=== PATIENT | female | born 1940 ===

== ENCOUNTER 2017-11-25 19:32 | Emergency (ER) | payer BC ==
[2017-11-25 20:10] VITALS: BP 151/68; PULSE 73; RESP 18; TEMP 98.2; O2SAT 100
[2017-11-25] MEDS ORDERED: Sodium Chloride 0.9% 250 ML IV ONE (20:44)
--- NOTE | 2017-11-25 20:45 | ED PDOC ---
HPI:Nausea, Vomiting, Diarrhea <Keyon Duque - Last Filed: 11/25/17 22:19> Chief Complaint (Provider): Nausea/poor appetite History Per: Patient History/Exam Limitations: no limitations Onset/Duration Of Symptoms: Days Current Symptoms Are (Timing): Still Present Associated Symptoms: Nausea. denies: Fever, Chills, Vomiting, Diarrhea, Back Pain, Chest Pain, Constipation, Urinary Symptoms Additional Complaint(s): 77 y/o F with h/o HTN, HLD, Arthritis presents to ED complaining of poor appetite, and nausea for 2 weeks. States that she started with poor appetite since 2 weeks ago, and then started having nausea without vomiting, and decided to come to Ed for eval because her poor appetite is persistent, and her nausea is getting worse. Denies fevers, chills, CP, SOB, abdominal pain, diarrheas, urinary symptoms, or other complains. Saw her Cigar Making Supervisor on Monday, who did some cardiac test in his office, and because abnormal findings she will get another test " poss stress test next week". Last BM was today morning and normal. PMD: Dr. Simon Cardiology: Dr. Hilliard <Desirae Velarde - Last Filed: 11/25/17 22:53> Time Seen by Provider: 11/25/17 20:09 Chief Complaint (Nursing): GI Problem Supervising Attending Note - Supervising Attending Note The Documented history was done by the: Physician Candy Wrapping Machine Operator, Attending Physician The documented physical exam was done by the: Physician Candy Wrapping Machine Operator, Attending Physician The documented procedures were done by the: Physician Candy Wrapping Machine Operator, Attending Physician - Attestation: I have personally seen and examined this patient.: Yes I have fully participated in the care of the patient.: Yes I have reviewed all pertinent clinical information, including history, physical exam and plan: Yes <Keyon Duque - Last Filed: 11/25/17 22:19> Past Medical History Vital Signs: Last Vital Signs Temp 98.2 F 11/25/17 20:08 Pulse 73 11/25/17 20:08 Resp 18 11/25/17 20:08 BP 151/68 H 11/25/17 20:08 Pulse Ox 100 11/25/17 21:16 <Keyon Duque - Last Filed: 11/25/17 22:19> Vital Signs: Last Vital Signs Temp 98.2 F 11/25/17 20:08 Pulse 73 11/25/17 20:08 Resp 18 11/25/17 20:08 BP 151/68 H 11/25/17 20:08 Pulse Ox 100 11/25/17 20:08 - Medical History PMH: Asthma, HTN - Family History Family History: States: Unknown Family Hx <Desirae Velarde - Last Filed: 11/25/17 22:53> - Home Medications Home Medications: Ambulatory Orders Medication Instructions Recorded Nitrofurantoin Macrocrystals 100 mg PO BID #14 cap 11/25/17 [Macrobid] Ondansetron ODT [Zofran ODT] 4 mg PO Q8 PRN #5 odt 11/25/17 - Allergies Allergies/Adverse Reactions: Allergies Allergy/AdvReac Type Severity Reaction Status Date / Time Penicillins Allergy RASH Verified 11/25/17 20:08 Review of Systems ROS Statement: Except As Marked, All Systems Reviewed And Found Negative <Desirae Velarde - Last Filed: 11/25/17 22:53> Physical Exam - Reviewed Nursing Documentation Reviewed: Yes Vital Signs Reviewed: Yes - Physical Exam Appears: Positive for: Non-toxic, No Acute Distress Head Exam: Positive for: ATRAUMATIC, NORMOCEPHALIC Skin: Positive for: Warm, Dry. Negative for: Diaphoresis, Pallor, Rash, Jaundice Eye Exam: Positive for: Normal appearance ENT: Positive for: Normal ENT Inspection Neck: Positive for: Supple Cardiovascular/Chest: Positive for: Regular Rate, Rhythm, Edema (pitting 1+ in Lower extremities). Negative for: Chest Non Tender, Bradycardia, Tachycardia Respiratory: Positive for: Normal Breath Sounds. Negative for: Crackles, Rales , Rhonchi, Wheezing, Respiratory Distress Gastrointestinal/Abdominal: Positive for: Soft. Negative for: Tenderness, Distended, Guarding, Rebound Back: Positive for: Normal Inspection. Negative for: L CVA Tenderness, R CVA Tenderness Neurologic/Psych: Positive for: Alert, Oriented <Desirae Velarde - Last Filed: 11/25/17 22:53> - Laboratory Results Result Diagrams: 11/25/17 20:49 11/25/17 21:19 <Keyon Duque Last Filed: 11/25/17 22:19> - Laboratory Results Result Diagrams: 11/25/17 20:49 11/25/17 21:19 - ECG O2 Sat by Pulse Oximetry: 100 <Desirae Velarde - Last Filed: 11/25/17 22:53> Medical Decision Making Medical Decision Making: Poor Appetite/Nausea CBC, CMP urine dip, UA EKG NS 250 ml bolus once case discussed with Dr. Duque Labs : CBC WNL CMP remarkable for mild elevated BUN/Cr possible 2/2 dehydration in a setting of poor PO intake, and taking diuretics UA positive for WBC , and large leukocyte esterase will send for urine Cx start Macrobid empiric treatment Zofran 4 mg PO PRN for nausea decreased furosemide from 40 mg to 20 mg PO as directed f/u with PMD and Cardiology in 2-3 days is recommended ER precautions given case discussed with Dr. Duque <Desirae Velrade - Last Filed: 11/25/17 22:53> Disposition <Keyon Duque - Last Filed: 11/25/17 22:19> - Patient ED Disposition Is Patient to be Admitted: No Discussed With : Keyon Duque - Disposition Disposition: Routine/Home Disposition Time: 22:41 <Desirae Velarde - Last Filed: 11/25/17 22:53> - Clinical Impression Clinical Impression: Nausea - Disposition Condition: IMPROVED Additional Instructions: Bishop a emery medico primario en 2-3 hernandez, tambien se recomienda seguir con Cardiologo en 2-3 days. Disminuir dosis de Furosemide a 20 mg hasta que katharina a emery Cardiologo. Ernesto Macrobid dos veces al ciara for infeccion urinaria stanislav indicado Regresar a emergency si fiebre jemal, escalofrios, dolor en el pecho, falta de aire o otro simtoma que le preocupe Prescriptions: Nitrofurantoin Macrocrystals [Macrobid] 100 mg PO BID #14 cap Ondansetron ODT [Zofran ODT] 4 mg PO Q8 PRN #5 odt PRN Reason: Nausea/Vomiting Instructions: Nausea and Vomiting, Adult (DC) Print Language: GREENLANDIC
[2017-11-25 20:53] LABS: EOS # 0.1 K/uL (0.0-0.7); EOS % 1.5 % (0.0-4.0); HEMOGLOBIN 13.2 g/dL (12.0-16.0); LYMPH # 1.3 K/uL (1.0-4.3); MEAN CELL VOLUME 90.3 fl (81.0-99.0); MEAN CORPUSCULAR HEMOGLOBIN 30.1 pg (27.0-31.0); MEAN CORPUSCULAR HGB CONC 33.4 g/dL (33.0-37.0); MEAN PLATELET VOLUME 7.8 fl (7.2-11.7); MONO # 0.5 K/uL (0.0-0.8); MONO % 11.3 % (0.0-10.0); NEUT # 2.5 K/uL (1.8-7.0); NEUT % 57.2 % (50.0-75.0); RBC 4.37 Mil/uL (3.80-5.20); RED CELL DISTRIBUTION WIDTH 13.5 % (11.5-14.5); WHITE BLOOD COUNT 4.4 K/uL (4.8-10.8)
[2017-11-25 21:27] LABS: SQUAMOUS EPITHIAL < 1 /hpf (0-5); URINE BILIRUBIN NEGATIVE (NEGATIVE); URINE BLOOD NEGATIVE (NEGATIVE); URINE CLARITY SLIGHTY-CLOUDY (Clear); URINE COLOR YELLOW (YELLOW); URINE GLUCOSE (UA) NEG (Normal); URINE LEUKOCYTE ESTERASE LARGE Leu/uL (Negative); URINE PROTEIN NEGATIVE (NEGATIVE); URINE UROBILINOGEN 0.2-1.0 mg/dL (0.2-1.0)
[2017-11-25 21:31] LABS: ALB/GLOB RATIO 1.2 (1.0-2.1); ALBUMIN 4.1 g/dL (3.5-5.0); CALCIUM 9.3 mg/dL (8.4-10.2)
--- NOTE | 2017-11-27 17:54 | CARD ---
APPROVED REPORT Date of service: 11/25/2017 EKG Measurement Heart [id number] <Conclusion> Normal sinus rhythm Left bundle branch block Abnormal ECG
== END 2017-11-25 23:10 | disposition home or self-care (01) ==
LOC: H.ER 19:32
DX: R11.0 Nausea (principal); I10 Essential (primary) hypertension; J45.909 Unspecified asthma, uncomplicated; Z88.0 Allergy status to penicillin
CPT/HCPCS: 80053; 81003; 85025; 87086; 93005; 96361; 96374; 99283; J2405; J7040

== ENCOUNTER 2017-11-29 12:07 | Emergency (ER) | payer BC ==
[2017-11-29 12:20] VITALS: BP 158/57; RESP 20; TEMP 98.2; O2SAT 99
[2017-11-29 13:09] LABS: BASO # 0.1 K/uL (0.0-0.2); BASO % 1.1 % (0.0-2.0); EOS # 0.1 K/uL (0.0-0.7); EOS % 1.6 % (0.0-4.0); HEMOGLOBIN 12.6 g/dL (12.0-16.0); LYMPH # 1.4 K/uL (1.0-4.3); LYMPH % 30.7 % (20.0-40.0); MEAN CELL VOLUME 91.8 fl (81.0-99.0); MEAN CORPUSCULAR HEMOGLOBIN 30.1 pg (27.0-31.0); MEAN CORPUSCULAR HGB CONC 32.8 g/dL (33.0-37.0); MEAN PLATELET VOLUME 7.7 fl (7.2-11.7); MONO # 0.4 K/uL (0.0-0.8); MONO % 9.3 % (0.0-10.0); NEUT # 2.7 K/uL (1.8-7.0); NEUT % 57.3 % (50.0-75.0); NRBC % 0.1 % (0.0-0.0); RBC 4.17 Mil/uL (3.80-5.20); RED CELL DISTRIBUTION WIDTH 13.9 % (11.5-14.5); WHITE BLOOD COUNT 4.6 K/uL (4.8-10.8)
[2017-11-29] MEDS ORDERED: Iohexol 240 (50 ml) ONE (13:10)
[2017-11-29 13:13] LABS: SQUAMOUS EPITHIAL < 1 /hpf (0-5); URINE BILIRUBIN NEGATIVE (NEGATIVE); URINE BLOOD NEGATIVE (NEGATIVE); URINE CLARITY CLEAR (Clear); URINE COLOR AMBER (YELLOW); URINE GLUCOSE (UA) NEG (Normal); URINE LEUKOCYTE ESTERASE NEG Leu/uL (Negative); URINE PROTEIN NEGATIVE (NEGATIVE); URINE UROBILINOGEN 0.2-1.0 mg/dL (0.2-1.0)
[2017-11-29] MEDS: Iohexol 240 (50 ml) PO ONE (13:13)
[2017-11-29 13:21] VITALS: PULSE 65
--- NOTE | 2017-11-29 13:21 | ED PDOC ---
HPI:Nausea, Vomiting, Diarrhea Time Seen by Provider: 11/29/17 12:33 Chief Complaint (Nursing): GI Problem Chief Complaint (Provider): Nausea History Per: Patient History/Exam Limitations: no limitations Onset/Duration Of Symptoms: Days Current Symptoms Are (Timing): Still Present Associated Symptoms: Nausea. denies: Fever, Vomiting, Diarrhea, Chest Pain, Urinary Symptoms Additional Complaint(s): 77 year old female presents to the ED complaining of nausea onset for one week. States her nausea originally resolved after taking the prescribed Zofran and Macrobid. She felt better, however, her symptoms returned prompting her to come to the ED. Also reports she stopped taking some of her medications due to the nausea. Denies vomiting, diarrhea, fever, abdominal pain, chest pain, dizziness , headache or any urinary symptoms. PMD: Manuela Simon Past Medical History Reviewed: Historical Data, Nursing Documentation, Vital Signs Vital Signs: Last Vital Signs Temp 98.2 F 11/29/17 12:16 Pulse 75 11/29/17 12:16 Resp 20 11/29/17 12:16 BP 158/57 H 11/29/17 12:16 Pulse Ox 99 11/29/17 12:16 - Medical History PMH: Arthritis, Asthma, HTN - Surgical History Surgical History: No Surg Hx - Family History Family History: States: Unknown Family Hx - Social History Current smoker - smoking cessation education provided: No Alcohol: None Drugs: Denies - Home Medications Home Medications: Ambulatory Orders Medication Instructions Recorded Nitrofurantoin Macrocrystals 100 mg PO BID #14 cap 11/25/17 [Macrobid] Ondansetron ODT [Zofran ODT] 4 mg PO Q8 PRN #5 odt 11/25/17 - Allergies Allergies/Adverse Reactions: Allergies Allergy/AdvReac Type Severity Reaction Status Date / Time Penicillins Allergy RASH Verified 11/25/17 20:08 Review of Systems ROS Statement: Except As Marked, All Systems Reviewed And Found Negative Constitutional: Negative for: Fever Cardiovascular: Negative for: Chest Pain Gastrointestinal: Positive for: Nausea. Negative for: Vomiting, Abdominal Pain , Diarrhea Genitourinary Female: Negative for: Dysuria, Frequency, Incontinence Neurological: Negative for: Headache, Dizziness Physical Exam - Reviewed Nursing Documentation Reviewed: Yes Vital Signs Reviewed: Yes - Physical Exam Appears: Positive for: Well, Non-toxic, No Acute Distress Head Exam: Positive for: ATRAUMATIC, NORMAL INSPECTION, NORMOCEPHALIC Skin: Positive for: Normal Color, Warm, Dry Eye Exam: Positive for: EOMI, Normal appearance, PERRL ENT: Positive for: Normal ENT Inspection Neck: Positive for: Normal, Painless ROM, Supple. Negative for: Decreased ROM Cardiovascular/Chest: Positive for: Regular Rate, Rhythm. Negative for: Murmur Respiratory: Positive for: Normal Breath Sounds. Negative for: Decreased Breath Sounds, Wheezing, Respiratory Distress Gastrointestinal/Abdominal: Positive for: Normal Exam, Bowel Sounds, Soft. Negative for: Tenderness, Guarding, Rebound Back: Positive for: Normal Inspection. Negative for: L CVA Tenderness, R CVA Tenderness Extremity: Positive for: Normal ROM. Negative for: Tenderness, Pedal Edema, Deformity Neurologic/Psych: Positive for: Alert, Oriented (x3) - Laboratory Results Result Diagrams: 11/29/17 12:57 11/29/17 12:57 - ECG ECG: Positive for: Interpreted By Me, Viewed By Me ECG Rhythm: Positive for: Sinus Rhythm, Left Bundle Branch Block. Negative for : ST/T Changes Rate: 65 O2 Sat by Pulse Oximetry: 99 - Progress Re-evaluation Time: 17:45 Condition: Re-examined, Improved Medical Decision Making Medical Decision Making: Time: 1246 Initial Impression: nausea Differential Diagnosis includes but is not limited to: UTI, dehydration, renal failure Initial Plan: --Abdomen & Pelvis [CT] --EKG --CMP --Lipase --Troponin I --CBC w/ Differential --Omnipaque 240 (50ml) --Urinalysis --Reevaluation 16:18 Abd/pelvis CT FINDINGS: LOWER THORAX: Unremarkable. LIVER: Unremarkable. No gross lesion or ductal dilatation. GALLBLADDER AND BILE DUCTS: Unremarkable. PANCREAS: Unremarkable. No gross lesion or ductal dilatation. SPLEEN: Unremarkable. ADRENALS: Unremarkable. No mass. KIDNEYS AND URETERS: Unremarkable. No hydronephrosis. No solid mass. VASCULATURE: Unremarkable. No aortic aneurysm. BOWEL: Constipation without fecal impaction or obstruction. Diverticulosis without an acute inflammatory component or other associated pathologic process. APPENDIX: No abnormalities to suggest acute appendicitis. No right lower quadrant inflammatory processes identified. PERITONEUM: Unremarkable. No free fluid. No free air. LYMPH NODES: Unremarkable. No enlarged lymph nodes. BLADDER: Unremarkable. REPRODUCTIVE: Unremarkable. BONES: No acute fracture. OTHER FINDINGS: None. IMPRESSION: No significant or acute findings to account for/ related to the clinical presentation. Additional benign and/or incidental findings described above. Scribe Attestation: Documented by Latrell Lomeli, acting as a scribe for Keyon Duque MD Provider Scribe Attestation: All medical record entries made by the Scribe were at my direction and personally dictated by me. I have reviewed the chart and agree that the record accurately reflects my personal performance of the history, physical exam, medical decision making, and the department course for this patient. I have also personally directed, reviewed, and agree with the discharge instructions and disposition. Disposition - Clinical Impression Clinical Impression: Nausea, CKD (chronic kidney disease) - Patient ED Disposition Is Patient to be Admitted: No Doctor Will See Patient In The: Office Counseled Patient/Family Regarding: Studies Performed, Diagnosis, Need For Followup - Disposition Disposition: Routine/Home Disposition Time: 17:00 Condition: FAIR Additional Instructions: Take your medications as instructed. Follow up with your PCP in 2-3 days. JODIE PÉREZ, thank you for letting us take care of you today. Your provider was Keyon Duque MD and you were treated for NAUSEA. The emergency medical care you received today was directed at your acute symptoms. If you were prescribed any medication, please fill it and take as directed. It may take several days for your symptoms to resolve. Return to the Emergency Department if your symptoms worsen, do not improve, or if you have any other problems. Please contact your doctor or call one of the physicians/clinics you have been referred to that are listed on the Patient Visit Information form that is included in your discharge packet. Bring any paperwork you were given at discharge with you along with any medications you are taking to your follow up visit. Our treatment cannot replace ongoing medical care by a primary care provider outside of the emergency department. Thank you for allowing the [facility] team to be part of your care today. If you had an X-Ray or CT scan: A Radiologist will review the ED reading if any change in treatment is needed we will contact you. If you had a blood, urine, or wound culture: It will take several days for the results, if any change in treatment is needed we will contact you. If you had an STI test: It will take 48 hours for the results. Please call after 1 week if you have not heard back. Instructions: Chronic Kidney Disease, Nausea and Vomiting, Adult (DC) Print Language: FILIPINO
[2017-11-29 13:41] LABS: ALB/GLOB RATIO 1.2 (1.0-2.1); ALBUMIN 4.3 g/dL (3.5-5.0); ALT/SGPT 25 U/L (9-52); AST/SGOT 27 U/L (14-36); BLOOD UREA NITROGEN 27 mg/dl (7-17); CALCIUM 9.6 mg/dL (8.4-10.2); GFR AFRICAN-AMERICAN 41; GFR NON-AFRICAN AMERICAN 34; LIPASE 301 U/L (23-300)
[2017-11-29] MEDS: Sodium Chloride 0.9% 1,000 ML IV STA (15:03)
--- NOTE | 2017-11-29 16:20 | CT ---
Date of service: 11/29/2017 PROCEDURE: CT Abdomen and Pelvis with contrast HISTORY: nausea intractable COMPARISON: None. TECHNIQUE: Contrast dose: Oral contrast only. Radiation dose: Total exam DLP = 858.88 mGy-cm. This CT exam was performed using one or more of the following dose reduction techniques: Automated exposure control, adjustment of the mA and/or kV according to patient size, and/or use of iterative reconstruction technique. FINDINGS: LOWER THORAX: Unremarkable. LIVER: Unremarkable. No gross lesion or ductal dilatation. GALLBLADDER AND BILE DUCTS: Unremarkable. PANCREAS: Unremarkable. No gross lesion or ductal dilatation. SPLEEN: Unremarkable. ADRENALS: Unremarkable. No mass. KIDNEYS AND URETERS: Unremarkable. No hydronephrosis. No solid mass. VASCULATURE: Unremarkable. No aortic aneurysm. BOWEL: Constipation without fecal impaction or obstruction. Diverticulosis without an acute inflammatory component or other associated pathologic process. APPENDIX: No abnormalities to suggest acute appendicitis. No right lower quadrant inflammatory processes identified. PERITONEUM: Unremarkable. No free fluid. No free air. LYMPH NODES: Unremarkable. No enlarged lymph nodes. BLADDER: Unremarkable. REPRODUCTIVE: Unremarkable. BONES: No acute fracture. OTHER FINDINGS: None. IMPRESSION: No significant or acute findings to account for/ related to the clinical presentation. Additional benign and/or incidental findings described above.
--- NOTE | 2017-11-29 17:07 | CARD ---
APPROVED REPORT Date of service: 11/29/2017 EKG Measurement Heart [id number] 150P30 [id number] <Conclusion> Normal sinus rhythm Left bundle branch block Abnormal ECG
== END 2017-11-29 19:25 | disposition home or self-care (01) ==
LOC: H.ER 12:07
DX: R11.0 Nausea (principal); I12.9 Hypertensive chronic kidney disease with stage 1 through stage 4 chronic kidney disease, or unspecified chronic kidney disease; Z88.0 Allergy status to penicillin
CPT/HCPCS: 74176; 80053; 81003; 83690; 84484; 85025; 93005; 96360; 99283; J7030; Q9966